=== PATIENT | female | born 1985 | race Caucasian/White ===

== ENCOUNTER 2017-01-09 11:33 | Day surgery (SDC) | payer OTHER ==
--- NOTE | 2017-01-05 21:00 | HP ---
PREOPERATIVE HISTORY AND PHYSICAL: DATE OF ADMISSION/SURGERY: 01/09/17 - [facility] DATE OF OFFICE VISIT: 01/05/17 ATTENDING SURGEON: Dr. Melissa Alberts. PROCEDURE: Right shoulder arthroscopic decompression and debridement. CHIEF COMPLAINT: Right shoulder pain. HISTORY OF PRESENT ILLNESS: Ms. Teran is a 31-year-old female who presents to the clinic for ongoing right shoulder pain. She has a history of an anterior capsular shift and labral repair of her shoulder instability; however, she continued to have shoulder pain due to impingement. She has failed conservative measures and therefore has agreed to undergo a right shoulder arthroscopic decompression and debridement with Dr. Alberts on 01/09/17. PAST MEDICAL HISTORY: Crohn's disease, anxiety, depression, and GERD. PAST SURGICAL HISTORY: Left breast lumpectomy that was benign, colon resection at the terminal ileum for Crohn's disease, and right shoulder anterior capsular shift and right shoulder labral repair. She was also hospitalized in 2000 and 2001 for fracture and DVT due to trauma. She has not had a DVT since. She denies pulmonary embolism. MEDICATIONS: 1. Maxalt 10 mg. 2. Calcium 1000 units plus D 800 mg 1 by mouth every day. 3. Humira 40 mg per 0.8 mL every week. 4. Multivitamins 1 by mouth daily. 5. Probiotics 1 by mouth daily. 6. Depakote 500 mg 1 by mouth daily. 7. Imitrex 100 mg every 2 hours as needed. 8. Benadryl 25 mg 1 by mouth every 6 hours as needed. 9. Xanax 1 mg by mouth three times a day as needed. 10. Oxycodone HCl 100 mg per 5 mL, 0.5 to 1 mL p.o. every 4 to 6 hours as needed for pain. 11. Propranolol HCl 60 mg take 1 by mouth daily. 12. Promethazine 25 mg 1 by mouth 3 times a day as needed. 13. Sumatriptan 100 mg as directed for migraines. 14. Vitamin K 200 mcg 2 by mouth every day. 15. Calcium as directed. 16. Cinnamon as directed. 17. Vitamin B12 complex as directed. 18. Stool softener 100 mg 1 by mouth twice a day. ALLERGIES: MORPHINE, CIPRO, ZITHROMAX, and ASACOL. FAMILY HISTORY: Positive for cancer. Mom has a history of GERD. Negative for DVT or PE. SOCIAL HISTORY: She lives with her . She denies smoking. She drinks alcoholic beverages rarely. She is left hand dominant. REVIEW OF SYSTEMS: A 14-point review of systems was reviewed with the patient. Positive for headaches and migraines. Positive for nausea, vomiting, diarrhea, and constipation due to Crohn's disease. Positive for GERD. Positive for history of UTIs. Positive for anemia. Positive for DVT after fracture and trauma. Denies pulmonary embolism or bleeding disorder. Review of systems is otherwise negative. PHYSICAL EXAMINATION GENERAL: A well-developed, well-nourished, 31-year-old female, in no acute distress. VITAL SIGNS: Height 69 inches, weight 118, pulse 72, blood pressure 104/86, respiratory rate 16, BMI 17.4. HEENT: Normocephalic, atraumatic. Throat clear. NECK: Supple. PULMONARY: Lungs are clear to auscultation bilaterally. No wheezing, rhonchi, or rales. CARDIOVASCULAR: Regular rate and rhythm. S1 and S2. No murmurs, gallops, or rubs. No edema. ABDOMEN: Positive bowel sounds, soft, nontender. NEURO: Alert and oriented x3. Cranial nerves are grossly intact. Sensation is intact to light touch. MUSCULOSKELETAL: shoulder, skin is intact. No erythema or warmth. Forward flexion to 180, abduction to 180, external rotation to 80, internal rotation to T6. Good strength on rotator cuff testing. +2 radial pulse. Sensation is intact to light touch distally. DIAGNOSTIC STUDIES: MR arthrogram reveals scar tissue and some subluxation of the shoulder. No rotator cuff tear of biceps is located. IMPRESSION: Impingement syndrome, right shoulder. PLAN: The patient is scheduled to undergo a right shoulder arthroscopic decompression and debridement with Dr. Alberts on 01/09/17. She will return to the office 10 to 14 days for postoperative followup and suture removal. Percocet will be used postoperatively for pain management. JEYSON WELSH [id number]/[facility] #: [id number] MTDD
[~2017-01-09 11:33] MED LIST: Buffered Lidocaine 1% SYR 3ML* 3 ML/SYR SYRINGE INTRADERM ONE; Famotidine IV* 10 MG/ML 2 ML (20 mg) IV ONE
[2017-01-09] MEDS ORDERED: Famotidine IV* 10 MG/ML 2 ML (20 mg) ONE ×2 (12:43→13:10)
[2017-01-09] MEDS ORDERED: ceFAZolin 2 GM PREMIX (*) 2 GM/50 ML BAG IVPB ONE (12:46)
[2017-01-09] MEDS ORDERED: Midazolam* 1 MG/ML 5 ML VIAL (5 MG) ONE (12:58)
[2017-01-09] MEDS ORDERED: fentaNYL* 50 MCG/ML 2 ML VIAL (100 MCG VIAL) ONE (12:58)
[2017-01-09] MEDS ORDERED: Ketorolac INJ* 30 MG/ML 1 ML VIAL ONE (12:59)
[2017-01-09] MEDS ORDERED: Lidocaine 2% PF * 5 ML VIAL ONE (12:59)
[2017-01-09] MEDS ORDERED: Ondansetron INJ* 2 MG/ML VIAL ONE (12:59)
[2017-01-09] MEDS ORDERED: Dexamethasone IV* 4 MG/ML 1 ML (4 MG) ONE (12:59)
[2017-01-09] MEDS ORDERED: Propofol* 10 MG/ML 20 ML BTL IV PUSH ONE (12:59)
[2017-01-09] MEDS ORDERED: ROPIVACAINE 5 MG/ML 30 ML BTL (0.5%) ONE (14:26)
[2017-01-09] MEDS ORDERED: Lidocaine 1% MPF* 2 ML VIAL ONE (14:27)
[2017-01-09] MEDS ORDERED: DiMENhydriNATE IV* 50 MG/ML VIAL ONE (15:06)
[2017-01-09] MEDS ORDERED: DiMENhydriNATE IV* 50 MG/ML VIAL IV PUSH PRN (15:28)
[2017-01-09] MEDS ORDERED: HYDROmorphone INJ* 1 MG/ML CARPUJECT SYRINGE IV PRN (15:28)
[2017-01-09] MEDS ORDERED: oxyCODONE/Acetamin 5/325 MG* TAB PO PRN (15:28)
[2017-01-09 16:32] VITALS: BP 125/90
[2017-01-09] MEDS ORDERED: Bupivacaine 0.25% SDV* 30 ML ONE (16:51)
--- NOTE | 2017-01-10 07:41 | OP ---
DATE OF OPERATION: 01/09/17 - [facility] DATE OF : 85 SURGEON: Melissa Alberts MD ANESTHESIOLOGIST: Zoraida Mejia MD ANESTHESIA: General PRE-OP DIAGNOSES: Right shoulder impingement and bicipital tendonitis, status post capsular labral repair, possible instability. POST-OP DIAGNOSES: Bicipital tendonitis, no full thickness rotator cuff tear, subacromial impingement. No failure of the capsular labral repair. OPERATIVE PROCEDURE: Right shoulder arthroscopic decompression and debridement. INDICATIONS: Salina Teran is a pleasant 32-year-old female who presents with right shoulder pain. In January 2016, she underwent capsular labral reconstruction after work-related injury. She did well and obtained her range of motion, but she started developing anteriorly based pain as well as impingement. She has had two injections, which helped relieve a lot of her pain. After extensive discussion including the risks and benefits of surgery versus nonoperative treatment and no guarantee as to how she would do, she elected to proceed with surgery. Plan was for a right shoulder arthroscopy with subacromial decompression and biceps tenotomy. The risks and benefits were discussed at length including but not limited to bleeding, infection, damage to nerves, vessels, surrounding structures, wound nonhealing, persistent pain, need for further surgery, risks of anesthesia, failure of the repair and risk of DVT. She has a previous history of a DVT, but due to this being an upper extremity surgery and that she will not be immobilized, I think the risk is low. After obtaining worker's comp clearance, she has elected to proceed with surgery. DESCRIPTION OF PROCEDURE: The patient was greeted in the preoperative area by the attending surgeon. The correct extremity was marked and consent was confirmed. The patient underwent interscalene nerve block by the anesthesiologist, which she tolerated without difficulty. The patient was then brought back to the operating suite where she was placed in supine position on the operating table. She then underwent general anesthesia with LMA intubation , which she tolerated without difficulty. The patient was then placed in the left lateral decubitus position with a small axillary roll. She was supported with a peg board. All bony prominences were padded. Her right arm was draped unsterile from the traction frame with 10 pounds of traction. The right shoulder was prepped and draped in the usual sterile fashion beginning with a chlorhexidine, soap, scrub, and alcohol wipe and a final prep with ChloraPrep. After appropriate surgical pause indicating site, side, procedure, and administration of antibiotics, the posterolateral portal was made sharply with an 11 blade. The scope was introduced through the joint. The joint was then examined. The previous capsular labral repair was still intact. The sutures were visible. There was no evidence of instability. The shoulder was not sitting anteriorly displaced. The biceps was identified and was very hyperemic and the superior labrum was still attached but had some mild fraying. The undersurface of the subscap had mild degeneration but no tearing. The undersurface of the supraspinatus had minimal fraying. The anterior portal was made in an outside-in fashion. The shaver was brought in to debris the unstable flaps and labrum anteriorly and posteriorly. Although the labrum was intact, there was mild unstable fraying. The glenoid had grade 1 changes. The humeral head had areas of grade 2 changes above the grade 1 changes. The biceps was then tenotomized using the biter. The stump was debrided back using the shaver. Once the debridement was completed, attention was directed to the subacromial space. The scope was repositioned into subacromial space. The lateral portal was made in an outside-in fashion. The shaver was used to debride the abundant bursa that was present. Once this was done, it exposed the rotator cuff, which was found to be intact. The undersurface of the acromion was identified and skeletonized using an electrocautery device. Once this was done, it revealed a small anterolateral spur, which was then debrided back using the bur. Once the acromioplasty was complete, all loose debris and fluid was removed from the joint. An 18-gauge needle was placed in subacromial space under arthroscopic visualization. All fluid and debris was removed from the joints. Ports were closed with 3-0 nylon and the subacromial space was injected with 5 cc of Marcaine and 80 mg of Depo-Medrol. Sterile dressings were applied. She was placed in a Cryo/Cuff and a regular sling. She was awoken from anesthesia and transferred to PACU in stable condition. POSTOPERATIVE PLAN: She will be nonweightbearing. She will have to work on range of motion as tolerated. She will be in the sling for 3 to 5 days as needed. She will be discharged on pain medication as well as antibiotics. DVT prophylaxis considered, but deferred as her previous history was due to trauma and this is an upper extremity injury. She will follow up in 10 to 14 days. [id number]/[facility] #: [id number] SRIDHAR
== END 2017-01-09 16:46 | disposition home or self-care (01) ==
LOC: OREAST 11:33
PROVIDERS: ATTEND Orthopaedic Surgery
DX: M75.21 Bicipital tendinitis, right shoulder (principal); M75.41 Impingement syndrome of right shoulder; Z88.5 Allergy status to narcotic agent; Z87.891 Personal history of nicotine dependence; K21.9 Gastro-esophageal reflux disease without esophagitis; F41.9 Anxiety disorder, unspecified; F32.9 Major depressive disorder, single episode, unspecified; K50.90 Crohn's disease, unspecified, without complications; Z88.1 Allergy status to other antibiotic agents
CPT/HCPCS: 88304; J0690; J1100; J1240; J1885; J2250; J2405; J2704; J2795; J3010

== ENCOUNTER 2017-02-07 09:34 | Emergency (ER) | payer OTHER ==
[2017-02-07 10:00] VITALS: BP 112/83
--- NOTE | 2017-02-07 10:40 | UC ---
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 - History of Current Complaint Chief Complaint: UCEye Stated Complaint: EYE ISSUE Time Seen by Provider: 02/07/17 10:34 Hx Obtained From: Patient Hx Last Menstrual Period: 01/24/17 Location of Injury: Conjunctiva Aggravating Factor(s): Contact Lens, Blinking Alleviating Factor(s): Nothing Associated Signs And Symptoms: Positive: Drainage (Purulent), Vision Impairment Left - Allergies/Home Medications Allergies/Adverse Reactions: Allergies Allergy/AdvReac Type Severity Reaction Status Date / Time Morphine Allergy Mild Rash Verified 02/07/17 09:48 Azithromycin Allergy Unknown Rash Verified 02/07/17 09:48 Ciprofloxacin [From Cipro] Allergy Rash Verified 02/07/17 09:48 Mesalamine [From Asacol] Allergy FLARES UP Verified 02/07/17 09:48 CROHN'S ENVIRONMENTAL/SEASONAL Allergy SNEEZE, Uncoded 02/07/17 09:48 HAYFEVER ITCHY WATERY EYES Home Medications: Home Medications Tetrahydrozoline HCl (Ophth) [Visine] 1 drop OPHTHALMIC SEE INSTRUCTIONS PRN 09/15 [History Confirmed 02/07/17] PMH/Surg Hx/FS Hx/Imm Hx Previously Healthy: Yes Endocrine History Of: Denies: Diabetes, Thyroid Disease, Hyperthyroidism, Hypothyroidism, Dyslipidemia Cardiovascular History Of: Denies: Cardiac Disorders, Hypertension, Pacemaker/ICD, Myocardial Infarction , Congestive Heart Failure, Atrial Fibrillation, Deep Vein Thrombosis, Bleeding Disorders Respiratory History Of: Denies: COPD, Asthma GI/ History Of: Reports: Gastroesophageal Reflux - CROHNS DISEASE, Ulcer - chron's disease, Gastrointestinal Bleed Denies: Gall Bladder Disease, Kidney Stones, Diverticulitis, Renal Disease, Urosepsis Neurological History Of: Reports: Migraine - ONCE A WEEK OR TWO, CONTROL WITH MEDS Denies: CVA, Seizures Psychological History Of: Reports: Anxiety - on meds, Depression - on meds Cancer History Of: Denies: Lung Cancer, Colorectal Cancer, Breast Cancer, Prostate Cancer, Cervical Cancer Other History Of: Negative For: HIV, Hepatitis B, Hepatitis C, Anticoagulant Therapy - Surgical History Surgical History: Yes Surgery Procedure, Year, and Place: 2002 left breast lumpectomy-BENIGN. 2004 right shoulder anterior capsular shift. 01/2016 ANOTHER SURGERY FOR DISLOCATED SHOULDER. 2012 RESECTION OF COLON AND INTESTINE. 2016 Right shoulder surgery - Family History Known Family History: Positive: None - neg for HTN or CAD Negative: Cardiac Disease, Hypertension, Diabetes - Social History Occupation: Employed Full-time Lives: With Family Alcohol Use: Rare Alcohol Amount: 1 per year Substance Use Type: None Smoking Status (MU): Former Smoker Type: Cigarettes Amount Used/How Often: 1 PPD FOR APPROX 7 YEARS Have You Smoked in the Last Year: No When Did the Patient Quit Smoking/Using Tobacco: 2013 - Immunization History Most Recent Influenza Vaccination: 2014 Review of Systems Constitutional: Negative Skin: Negative Eyes: Drainage, Eye Redness ENT: Negative Respiratory: Negative Cardiovascular: Negative Gastrointestinal: Negative Genitourinary: Negative Motor: Negative Neurovascular: Negative Musculoskeletal: Negative Neurological: Negative Psychological: Negative All Other Systems Reviewed And Are Negative: Yes Physical Exam Triage Information Reviewed: Yes Appearance: Well-Appearing, No Pain Distress, Well-Nourished Vital Signs: Initial Vital Signs Temp 98.1 F 02/07/17 09:51 Pulse 78 02/07/17 09:51 Resp 16 02/07/17 09:51 BP 112/83 02/07/17 09:51 Pulse Ox 98 02/07/17 09:51 Vital Signs Reviewed: Yes Eyes: Positive: Conjunctiva Inflamed - left, Discharge - left, Other: - Left Eye under flourscinene - no abrasions or abnormalities noted ENT: Positive: Pharynx normal, Nasal congestion, TMs normal Neck: Positive: No Lymphadenopathy Respiratory: Positive: Lungs clear, Normal breath sounds, No respiratory distress, No accessory muscle use Cardiovascular: Positive: RRR, No Murmur, Pulses Normal Abdomen Description: Positive: Nontender, Soft Bowel Sounds: Positive: Present Musculoskeletal Exam: Normal Neurological: Positive: Alert Psychological Exam: Normal Skin Exam: Normal Eye Complaint Course/Dx - Course Course Of Treatment: exam completed. no abnormalities noted under flouriscine. will send to Dr Borjas for followup d/t vision changes, eye pain and immunosuppressive humira therapy - Differential Dx/Diagnosis Differential Diagnosis/HQI/PQRI: Conjunctivitis, Corneal Abrasion Provider Diagnoses: conjunctivitis Discharge - Discharge Plan Condition: Stable Disposition: HOME Patient Education Materials: Conjunctivitis (ED) Forms: *Work Release Referrals: Odilia Sanford MD [Primary Care Provider] - Rl Borjas MD [Medical Doctor] - Additional Instructions: Start using eyedrops as directed Call Dr Borjas for followup evluation CONJUNCTIVITIS What is Conjunctivitis? Conjunctivitis is redness and swelling of the conjunctiva, the thin transparent layer that lines the inner eyelid and covers the white part of the eye. The three main types of conjunctivitis are infectious, allergic, and chemical. The infectious type, commonly called "pink eye," is caused by a contagious virus or by bacteria. Your body's allergies to pollen, cosmetics, animals or fabrics often bring on allergic conjunctivitis. Irritants like air pollution, noxious fumes and chlorine in swimming pools may produce the chemical form. Symptoms Might Include: More tearing Eye pain Redness in the eyes Gritty feeling in the eyes Itching of the eye Blurred vision Sensitivity to light Crusts that form on the eyelid overnight Treatment Recommendations: Use eye drops or ointment as directed. Do not rub or touch your eyes. Wash your hands frequently. Use cool compresses to relieve pain and itching. Prevention: Do not share eye make-up. Replace eye make-up frequently. Do not share towels, washcloths, etc. Do not share eye drops. Disinfect and handle contact lenses properly. Call Your Doctor or Return Here IF: Your symptoms worsen or do not improve in 3 to 4 days. You have problems with, or loss of, your vision. You have a significant increase in pain. You have any new symptoms that worry you.
[2017-02-07] MEDS ORDERED: Fluorescein Sodium TOPICAL* 1 MG TEST ONE (10:46)
[2017-02-07] MEDS ORDERED: Tetracaine 0.5% OPTH.SOL 15ML* BTL ONE (10:48)
== END 2017-02-07 11:10 | disposition home or self-care (01) ==
LOC: UCEAST 09:34
DX: H10.32 Unspecified acute conjunctivitis, left eye (principal); K50.90 Crohn's disease, unspecified, without complications; K21.9 Gastro-esophageal reflux disease without esophagitis; G43.909 Migraine, unspecified, not intractable, without status migrainosus; F41.8 Other specified anxiety disorders; Z88.1 Allergy status to other antibiotic agents; Z88.5 Allergy status to narcotic agent; Z87.891 Personal history of nicotine dependence
CPT/HCPCS: 99212; A9270-GY; G0463

== ENCOUNTER 2018-01-08 13:38 | Emergency (ER) | payer OTHER ==
[2018-01-08 13:51] VITALS: BP 109/72
--- NOTE | 2018-01-08 14:26 | UC ---
Abdominal Pain Female HPI - HPI Summary HPI Summary: Pt presents with lower abdominal pain. She tells me that she is 11 weeks and this is her first . Her lower abdominal pain woke her up at 0100 this morning and lasted for about 1 hour before subsiding. She went back to sleep - when she woke up she had the pain again that has persisted at varying levels of pain since that time. She also has a hx of crohn's - says that she gets lower abdominal pain/cramping anyway, but this feels different than her usual. Says that she has been constipated for weeks, but finally had a large BM yesterday. Denies fever, chills, chest pain, SOB, n/v/d, recent illness , vaginal bleeding/discharge, or dysuria. - History of Current Complaint Chief Complaint: UCAbdominalPain Stated Complaint: ABD PAIN 11 WEEKS PREG Time Seen by Provider: 01/08/18 14:24 Hx Obtained From: Patient Hx Last Menstrual Period: 10/21/18 Onset/Duration: Sudden Onset Severity Initially: Moderate Severity Currently: Moderate Pain Intensity: 5 Pain Scale Used: 0-10 Numeric Allergies/Adverse Reactions: Allergies Allergy/AdvReac Type Severity Reaction Status Date / Time azithromycin Allergy Rash Verified 01/08/18 14:00 ciprofloxacin Allergy Rash Verified 01/08/18 13:59 mesalamine Allergy See Comment Verified 01/08/18 13:59 morphine Allergy Rash Verified 01/08/18 13:59 ENVIRONMENTAL/SEASONAL Allergy SNEEZE, Uncoded 02/07/17 09:48 HAYFEVER ITCHY WATERY EYES Home Medications: Home Medications Pnv No.95/Ferrous Fum/Folic AC [ Multivitamin Tablet] 1 each PO DAILY [History Confirmed 01/08/18] diphenhydrAMINE HCl [Benadryl Allergy 25 MG CAP] 25 mg PO Q6H PRN 01/08/18 [ History Confirmed 01/08/18] PMH/Surg Hx/FS Hx/Imm Hx Other History Of: Negative For: HIV, Hepatitis B, Hepatitis C, Anticoagulant Therapy - Surgical History Surgical History: Yes Surgery Procedure, Year, and Place: 2002 left breast lumpectomy-BENIGN. 2004 right shoulder anterior capsular shift. 01/2016 ANOTHER SURGERY FOR DISLOCATED SHOULDER. 2012 RESECTION OF COLON AND INTESTINE. 2017 Right shoulder surgery - Family History Known Family History: Positive: None - neg for HTN or CAD Negative: Cardiac Disease, Hypertension, Diabetes - Social History Lives: With Family Alcohol Use: None Alcohol Amount: 1 per year Substance Use Type: None Smoking Status (MU): Former Smoker Type: Cigarettes Amount Used/How Often: 1 PPD FOR APPROX 7 YEARS Have You Smoked in the Last Year: No When Did the Patient Quit Smoking/Using Tobacco: 2013 - Immunization History Most Recent Influenza Vaccination: 2014 Review of Systems Constitutional: Negative Skin: Negative Respiratory: Negative Cardiovascular: Negative Gastrointestinal: Abdominal Pain Genitourinary: Negative Motor: Negative Neurovascular: Negative Musculoskeletal: Negative Neurological: Negative Psychological: Negative All Other Systems Reviewed And Are Negative: Yes Physical Exam - Summary Physical Exam Summary: GENERAL: NAD. WDWN. No pain distress. SKIN: No rashes, sores, ulcers, masses, lesions. NECK: Supple. Nontender. No lymphadenopathy. CHEST: CTAB. No r/r/w. No accessory muscle use. Breathing comfortably and in no distress. CV: RRR. Without m/r/g. Pulses intact. Brisk cap refill. ABDOMEN: RLQ tenderness. Epigastric tenderness. Soft. No distention or guarding. No organomegaly. No CVA tenderness. Bowel sounds present x4. NEURO: Alert. CN II-XII grossly intact. PSYCH: Age appropriate behavior. Triage Information Reviewed: Yes Vital Signs: Initial Vital Signs Temp 98.2 F 01/08/18 13:40 Pulse 88 01/08/18 13:40 Resp 16 01/08/18 13:40 BP 109/72 01/08/18 13:40 Pulse Ox 99 01/08/18 13:40 Abd Pain Female Course/Dx - Course Course Of Treatment: Lower abdominal pain. . I advised the patient to seek further evaluation in the ED regarding her lower abdominal pain and . She was agreeable to this plan and her friend will drive her by private vehicle. - Differential Dx/Diagnosis Provider Diagnoses: Lower abdominal pain. Discharge - Discharge Plan Condition: Stable Disposition: OTHER Discharge Disposition Comment: To [facility] by private car Referrals: Odilia Sanford MD [Primary Care Provider] - Additional Instructions: Please go directly to [facility] ED for evaluation of your abdominal pain in .
== END 2018-01-08 14:34 ==
LOC: UCEAST 13:38
DX: O26.891 Other specified pregnancy related conditions, first trimester (principal); R10.30 Lower abdominal pain, unspecified; Z3A.11 11 weeks gestation of pregnancy; Z88.1 Allergy status to other antibiotic agents; Z88.5 Allergy status to narcotic agent; Z87.891 Personal history of nicotine dependence
CPT/HCPCS: 99212; G0463

== ENCOUNTER 2018-01-08 14:52 | Emergency (ER) | payer OTHER ==
--- NOTE | 2018-01-08 16:23 | RAD ---
HISTORY: Pelvic cramping in a woman who is 11 weeks according to last menstrual period. COMPARISONS: None from this . TECHNIQUE: Multiple transverse and longitudinal ultrasound images were obtained of the pelvis using grayscale, color flow, spectral and M-mode sonographic imaging. FINDINGS: UTERUS: The uterus is normal in shape, size, contour, and echotexture. GESTATION: There is a single live intrauterine gestation. The crown-rump length measures 3.9 cm yielding a gestational age of 10 weeks and 6 days. cardiac motion is detected at a rate of 165 beats per minute. CUL-DE-SAC: There is no free fluid within the cul-de-sac. RIGHT OVARY: The right ovary measures 4.2 x 3.0 x 2.5 cm. Within the right ovary there is an anechoic and avascular structure measuring 2.8 cm in greatest dimension most consistent with a corpus luteum. LEFT OVARY: Not discretely visualized IMPRESSION: Single live intrauterine gestation with a crown-rump length yielding a gestational age of 10 weeks and 6 days.
[2018-01-08 16:47] LABS: ABS Basophils 0 10^3/ul (0-0.2); ABS Eosinophils 0 10^3/ul (0-0.6); ABS Lymphocytes 3.1 10^3/ul (1.0-4.8); ABS Monocytes 0.7 10^3/ul (0-0.8); ABS Neutrophils 5.4 10^3/ul (1.5-7.7); ABS Nucleated RBC 0 10^3/ul; Eosinophil % 0.3 % (0-6); Hematocrit 35 % (35-47); Hemoglobin 11.8 g/dl (12.0-16.0); Lymphocyte % 33.4 % (25-47); Mean Corpuscular HGB Conc 34 g/dl (31-36); Mean Corpuscular Hemoglobin 31 pg (27-31); Mean Corpuscular Volume 91 fL (80-97); Mean Platelet Volume 7 um3 (7.4-10.4); Nucleated Red Blood Cells % 0; Platelet Count 238 10^3/ul (150-450); Red Blood Count 3.81 10^6/ul (4.0-5.4); Red Cell Distribution Width 14 % (10.5-15); White Blood Count 9.2 10^3/ul (3.5-10.8)
[2018-01-08 17:09] LABS: Urine Appearance Cloudy; Urine Blood Negative (Negative); Urine Color Yellow; Urine Ketones Negative (Negative); Urine Protein Negative (Negative); Urine Urobilinogen Negative (Negative)
[2018-01-08 17:13] LABS: EGFR Non-African American 169.1 (>60)
[2018-01-08 18:48] VITALS: BP 94/50
--- NOTE | 2018-01-08 21:27 | ED ---
Genny Bernal Edward, scribed for Hernesto Clark MD on 01/08/18 at 1532 . Abdominal Pain/Female - HPI Summary HPI Summary: 33 y/o female presents to the ED c/o ABD pain starting at 01:00 this morning. Pt had two episodes of "whole stomach seizing", one at 01:00 and one between 06: 00-07:00 this morning, from the sternum to belly button. Intermittently today the pt c/o ABD pain in the lower ABD that moves from the R to the L. Associated sx: constipation the past several days but BM yesterday. The pain is not aggravated or alleviated by anything. PMHx Crohn's. LNMP Oct 21 2017. Insemination on Nov 07 2017. - History of Current Complaint Chief Complaint: EDAbdPain Stated Complaint: ABD PAIN-CC TRANSFER Time Seen by Provider: 01/08/18 15:26 Hx Obtained From: Patient Hx Last Menstrual Period: 10/21/18 Onset/Duration: Lasting Hours Timing: Intermittent Episode Lasting Pain Intensity: 4 Location: Other - lower ABD moves around Character: Cramping Aggravating Factor(s): Nothing Alleviating Factor(s): Nothing Associated Signs and Symptoms: Positive: Constipation Allergies/Adverse Reactions: Allergies Allergy/AdvReac Type Severity Reaction Status Date / Time azithromycin Allergy Rash Verified 01/08/18 14:00 ciprofloxacin Allergy Rash Verified 01/08/18 13:59 mesalamine Allergy See Comment Verified 01/08/18 13:59 morphine Allergy Rash Verified 01/08/18 13:59 ENVIRONMENTAL/SEASONAL Allergy SNEEZE, Uncoded 01/08/18 17:14 HAYFEVER ITCHY WATERY EYES PMH/Surg Hx/FS Hx/Imm Hx Previously Healthy: No Endocrine/Hematology History: Reports: Hx Anemia - WITH MENSTRUAL CYCLE Denies: Hx Anticoagulant Therapy, Hx Diabetes, Hx Thyroid Disease Cardiovascular History: Denies: Hx Congestive Heart Failure, Hx Deep Vein Thrombosis, Hx Hypertension , Hx Myocardial Infarction, Hx Pacemaker/ICD, Other Cardiovascular Problems/ Disorders Respiratory History: Denies: Hx Asthma, Hx Chronic Obstructive Pulmonary Disease (COPD), Hx Lung Cancer, Other Respiratory Problems/Disorders GI History: Reports: Hx Crohn's Disease, Hx Gastrointestinal Bleed, Hx Irritable Bowel, Hx Ulcer - chron's disease Denies: Hx Gall Bladder Disease, Hx Urosepsis Comment Only: Other GI Disorders - CROHNS History: Reports: Hx Kidney Infection - USUALLY TWICE A YEAR Denies: Hx Dialysis, Hx Kidney Stones, Hx Renal Disease, Other Problems/ Disorders Musculoskeletal History: Reports: Hx Arthritis - all over, Other Musculoskeletal History - RECURRENT RIGHT SHOULDER DISLOCATION Sensory History: Reports: Hx Contacts or Glasses - contacts and glasses Denies: Hx Hearing Aid Opthamlomology History: Reports: Hx Contacts or Glasses - contacts and glasses Neurological History: Reports: Hx Headaches, Hx Migraine - ONCE A WEEK OR TWO, CONTROL WITH MEDS Denies: Hx Seizures Psychiatric History: Reports: Hx Anxiety - on meds, Hx Depression - on meds, Hx Post Traumatic Stress Disorder Denies: Hx Panic Disorder - Surgical History Surgery Procedure, Year, and Place: 2002 left breast lumpectomy-BENIGN. 2004 right shoulder anterior capsular shift. 01/2016 ANOTHER SURGERY FOR DISLOCATED SHOULDER. 2012 RESECTION OF COLON AND INTESTINE. 2016 Right shoulder surgery Hx Anesthesia Reactions: No Infectious Disease History: No Infectious Disease History: Reports: Hx Clostridium Difficile, Hx Shingles Denies: Hx Hepatitis, Hx Human Immunodeficiency Virus (HIV), Hx of Known/ Suspected MRSA, Hx Tuberculosis, Hx Known/Suspected VRE, Hx Known/Suspected VRSA , History Other Infectious Disease, Traveled Outside the [place] in Last 30 Days - Family History Known Family History: Negative: Cardiac Disease, Hypertension, Diabetes - Social History Alcohol Use: None Alcohol Amount: 1 per year Substance Use Type: Reports: None Smoking Status (MU): Former Smoker Type: Cigarettes Amount Used/How Often: 1 PPD FOR APPROX 7 YEARS Have You Smoked in the Last Year: No Review of Systems Constitutional: Negative Eyes: Negative ENT: Negative Cardiovascular: Negative Respiratory: Negative Positive: Abdominal Pain, Other - constipation Genitourinary: Negative Musculoskeletal: Negative Skin: Negative Neurological: Negative Psychological: Normal All Other Systems Reviewed And Are Negative: Yes Physical Exam - Summary Physical Exam Summary: Appearance: The patient is well-nourished in no acute distress and in no acute pain. Skin: The skin is warm and dry and skin color reflects adequate perfusion. HEENT: The head is normocephalic and atraumatic. The pupils are equal and reactive. The conjunctivae are clear and without drainage. Nares are patent and without drainage. Mouth reveals moist mucous membranes and the throat is without erythema and exudate. The external ears are intact. The ear canals are patent and without drainage. The tympanic membranes are intact. Neck: the neck is supple with full range of motion and non-tender. There are no carotid bruits. There is no neck vein distension. Respiratory: Chest is non-tender. Lungs are clear to auscultation and breath sounds are symmetrical and equal. Cardiovascular: Heart is regular rate and rhythm. There is no murmur or rub auscultated. There is no peripheral edema and pulses are symmetrical and equal. Abdomen: The abdomen is soft and tender in the RLQ and in the epigastrium. There are normal bowel sounds heard in all four quadrants and there is no organomegaly palpated. Musculoskeletal: There is no back tenderness noted. Extremities are non-tender with full range of motion. There is good capillary refill. There is no peripheral edema or calf tenderness elicited. Neurological: Patient is alert and oriented to person, place and time. The patient has symmetrical motor strength in all four extremities. Cranial nerves are grossly intact. Deep tendon reflexes are symmetrical and equal in all four extremities. Psychiatric: The patient has an appropriate affect and does not exhibit any anxiety or depression. Triage Information Reviewed: Yes Vital Signs On Initial Exam: Initial Vitals Temp Pulse Resp BP Pulse Ox 97.1 F 66 16 120/78 100 01/08/18 15:11 01/08/18 15:11 01/08/18 15:11 01/08/18 15:11 01/08/18 15:11 Vital Signs Reviewed: Yes Diagnostics - Vital Signs Vital Signs Temp Pulse Resp BP Pulse Ox 01/08/18 15:11 97.1 F 66 16 120/78 100 - Laboratory Lab Results: Lab Results 01/08/18 01/08/18 01/08/18 Range/Units 16:11 16:11 16:11 WBC 9.2 (3.5-10.8) 10^3/ul RBC 3.81 L (4.0-5.4) 10^6/ul Hgb 11.8 L (12.0-16.0) g/dl Hct 35 (35-47) % MCV 91 (80-97) fL MCH 31 (27-31) pg MCHC 34 (31-36) g/dl RDW 14 (10.5-15) % Plt Count 238 (150-450) 10^3/ul MPV 7 L (7.4-10.4) um3 Neut % (Auto) 58.4 (38-83) % Lymph % (Auto) 33.4 (25-47) % Garvin % (Auto) 7.4 H (0-7) % Eos % (Auto) 0.3 (0-6) % Baso % (Auto) 0.5 (0-2) % Absolute Neuts (auto) 5.4 (1.5-7.7) 10^3/ul Absolute Lymphs (auto) 3.1 (1.0-4.8) 10^3/ul Absolute Monos (auto) 0.7 (0-0.8) 10^3/ul Absolute Eos (auto) 0 (0-0.6) 10^3/ul Absolute Basos (auto) 0 (0-0.2) 10^3/ul Absolute Nucleated RBC 0 10^3/ul Nucleated RBC % 0 Sodium 135 (133-145) mmol/L Potassium 4.0 (3.5-5.0) mmol/L Chloride 104 (101-111) mmol/L Carbon Dioxide 26 (22-32) mmol/L Anion Gap 5 (2-11) mmol/L BUN 10 (6-24) mg/dL Creatinine 0.43 L (0.51-0.95) mg/dL Est GFR ( Amer) 217.5 (>60) Est GFR (Non-Af Amer) 169.1 (>60) BUN/Creatinine Ratio 23.3 H (8-20) Glucose 83 (70-100) mg/dL Lactic Acid 0.8 (0.5-2.0) mmol/L Calcium 9.5 (8.6-10.3) mg/dL Total Bilirubin 0.20 (0.2-1.0) mg/dL AST 14 (13-39) U/L ALT 17 (7-52) U/L Alkaline Phosphatase 37 (34-104) U/L C-Reactive Protein < 1.00 (< 5.00) mg/L Total Protein 6.6 (6.4-8.9) g/dL Albumin 3.9 (3.2-5.2) g/dL Globulin 2.7 (2-4) g/dL Albumin/Globulin Ratio 1.4 (1-3) Lipase 20 (11.0-82.0) U/L Beta HCG, Quant 236066.00 mIU/mL Urine Color Urine Appearance Urine pH (5-9) Ur Specific [place] (1.010-1.030) Urine Protein (Negative) Urine Ketones (Negative) Urine Blood (Negative) Urine Nitrate (Negative) Urine Bilirubin (Negative) Urine Urobilinogen (Negative) Ur Leukocyte Esterase (Negative) Urine Glucose (Negative) 01/08/18 Range/Units 16:46 WBC (3.5-10.8) 10^3/ul RBC (4.0-5.4) 10^6/ul Hgb (12.0-16.0) g/dl Hct (35-47) % MCV (80-97) fL MCH (27-31) pg MCHC (31-36) g/dl RDW (10.5-15) % Plt Count (150-450) 10^3/ul MPV (7.4-10.4) um3 Neut % (Auto) (38-83) % Lymph % (Auto) (25-47) % Garvin % (Auto) (0-7) % Eos % (Auto) (0-6) % Baso % (Auto) (0-2) % Absolute Neuts (auto) (1.5-7.7) 10^3/ul Absolute Lymphs (auto) (1.0-4.8) 10^3/ul Absolute Monos (auto) (0-0.8) 10^3/ul Absolute Eos (auto) (0-0.6) 10^3/ul Absolute Basos (auto) (0-0.2) 10^3/ul Absolute Nucleated RBC 10^3/ul Nucleated RBC % Sodium (133-145) mmol/L Potassium (3.5-5.0) mmol/L Chloride (101-111) mmol/L Carbon Dioxide (22-32) mmol/L Anion Gap (2-11) mmol/L BUN (6-24) mg/dL Creatinine (0.51-0.95) mg/dL Est GFR ( Amer) (>60) Est GFR (Non-Af Amer) (>60) BUN/Creatinine Ratio (8-20) Glucose (70-100) mg/dL Lactic Acid (0.5-2.0) mmol/L Calcium (8.6-10.3) mg/dL Total Bilirubin (0.2-1.0) mg/dL AST (13-39) U/L ALT (7-52) U/L Alkaline Phosphatase (34-104) U/L C-Reactive Protein (< 5.00) mg/L Total Protein (6.4-8.9) g/dL Albumin (3.2-5.2) g/dL Globulin (2-4) g/dL Albumin/Globulin Ratio (1-3) Lipase (11.0-82.0) U/L Beta HCG, Quant mIU/mL Urine Color Yellow Urine Appearance Cloudy Urine pH 7.0 (5-9) Ur Specific [place] 1.020 (1.010-1.030) Urine Protein Negative (Negative) Urine Ketones Negative (Negative) Urine Blood Negative (Negative) Urine Nitrate Negative (Negative) Urine Bilirubin Negative (Negative) Urine Urobilinogen Negative (Negative) Ur Leukocyte Esterase Negative (Negative) Urine Glucose Negative (Negative) Result Diagrams: 01/08/18 16:11 01/08/18 16:11 Lab Statement: Any lab studies that have been ordered have been reviewed, and results considered in the medical decision making process. - Ultrasound No standard instances Ultrasound Interpretation: Positive (See Comments) - US - Single live intrauterine gestation with a crown-rump length yielding a gestational age of 10 weeks and 6 days. Ultrasound Interpretation Completed By: Radiologist - ED PHYSICIAN REVIEWS AND AGREES Re-Evaluation - Re-Evaluation 1 Re-Evaluation Time: 18:16 Change: Improved Abdominal Pain Fem Course/Dx - Course Course Of Treatment: Ms. Teran presented with abdominal pain that has been intermittent. She was tender in the suprapubic area although she states that the pain has moved around. Her W/U including U/S was negative. She has a nearly 11 week IUP without any problems. - Diagnoses Provider Diagnoses: Abdominal pain Discharge - Discharge Plan Condition: Stable Disposition: HOME Patient Education Materials: Abdominal Pain (ED) Referrals: Odilia Sanford MD [Primary Care Provider] - 4 Days (PLEASE F/U IN 3-5 DAYS) Additional Instructions: RETURN FOR WORSENING OF SYMPTOMS The documentation as recorded by the Genny coulter Edward accurately reflects the service I personally performed and the decisions made by , Hernesto Clark MD.
== END 2018-01-08 18:46 | disposition home or self-care (01) ==
LOC: ED 14:52
DX: R10.9 Unspecified abdominal pain (principal); K59.00 Constipation, unspecified; Z87.891 Personal history of nicotine dependence
CPT/HCPCS: 36415; 76801; 80053; 81003; 83605; 83690; 84702; 85025; 86140; 99282

== ENCOUNTER 2018-06-21 07:28 | Emergency (ER) | payer OTHER ==
[2018-06-21 07:37] VITALS: BP 142/94
--- NOTE | 2018-06-21 07:52 | UC ---
Throat Pain/Nasal Tee HPI - HPI Summary HPI Summary: IN ROOM NOTE: A 33 y/o F who is 35-weeks presents to E with c/o worsening sore throat pain onset 3-4 days ago. Associated sx: chest congestion, productive cough. Denies fever, LE edema, SOB worse than baseline, vaginal discharge or bleeding. She is not allergic to penicillin. This is her first , she states it is going well. Denies problems with high BP in her . PMHx: Crohn's. FHx: CA. Pt is a school speech therapist. She is unable to see her PCP who is currently out of town. Her daily medications include Oxycodone for Crohn's; vitamins; monthly B12; Benadryl for allergies; monthly Crohn's medication. NOTE: Chief complaint is sore throat. A 33 y/o F near term with sore throat, afebrile , BP of 142/94, pulse ox 99, has 5/10 throat discomfort. Former smoker, no ETOH. Pts hx includes Crohns dz. Rapid strep ordered. NURSE'S NOTE: 3 days of sore throat deneis fever, slight chest congetion. c/o difficulty swallowing. 8.5 months (34.5 weeks). - History of Current Complaint Chief Complaint: UCGeneralIllness Stated Complaint: SORE THROAT Time Seen by Provider: 06/21/18 07:45 Hx Obtained From: Patient, Family/Mechanics Handyman - present Hx Last Menstrual Period: 10/21/18 Onset/Duration: Lasting Days, Still Present Severity: Moderate Pain Intensity: 5 Pain Scale Used: 0-10 Numeric Cough: Productive Associated Signs & Symptoms: Positive: Other - pos: chest congestion, cough. neg : SOB worse than baseline; pedal edema; vaginal discharge/bleeding. Negative: Fever Related History: Seasonal Allergies - Allergies/Home Medications Allergies/Adverse Reactions: Allergies Allergy/AdvReac Type Severity Reaction Status Date / Time ciprofloxacin Allergy Rash Verified 06/21/18 07:37 mesalamine Allergy See Comment Verified 06/21/18 07:37 morphine Allergy Rash Verified 06/21/18 07:37 ENVIRONMENTAL/SEASONAL Allergy SNEEZE, Uncoded 06/21/18 07:37 HAYFEVER ITCHY WATERY EYES PMH/Surg Hx/FS Hx/Imm Hx Previously Healthy: No - pos: Crohn's; arthritis GI/ History: Gastroesophageal Reflux Psychological History: Anxiety, Depression Other History Of: Negative For: HIV, Hepatitis B, Hepatitis C, Anticoagulant Therapy - Surgical History Surgical History: Yes Surgery Procedure, Year, and Place: 2002 left breast lumpectomy-BENIGN. 2004 right shoulder anterior capsular shift. 01/2016 ANOTHER SURGERY FOR DISLOCATED SHOULDER. 2012 RESECTION OF COLON AND INTESTINE. 2017 Right shoulder surgery - Family History Known Family History: Negative: Cardiac Disease, Hypertension, Diabetes Family History: pos: CA - Social History Occupation: Employed Full-time Lives: With Family Alcohol Use: None Alcohol Amount: 1 per year Substance Use Type: None Smoking Status (MU): Former Smoker Type: Cigarettes Amount Used/How Often: 1 PPD FOR APPROX 7 YEARS Have You Smoked in the Last Year: No When Did the Patient Quit Smoking/Using Tobacco: 2013 - Immunization History Most Recent Influenza Vaccination: 2014 Review of Systems Constitutional: Negative - fever ENT: Sore Throat Respiratory: Negative - SOB, Cough - productive Cardiovascular: Other - pos: chest congestion Genitourinary: Negative - vaginal discharge Musculoskeletal: Negative - pedal edema All Other Systems Reviewed And Are Negative: Yes - Comments Additional Review of Systems Comments: POSITIVE: SORE THROAT, CHEST CONGESTION, PRODUCTIVE COUGH NEGATIVE: FEVER, SOB WORSE THAN BASELINE, LE EDEMA, VAGINAL DISCHARGE/BLEEDING Physical Exam - Summary Physical Exam Summary: Appearance: The patient is well-appearing, is in no pain distress, and is well- nourished. Eyes: Conjunctiva are clear. ENT: The hearing is grossly normal, the pharynx is normal, and the TMs are normal. There is no muffled or hoarse voice. THROAT SHOWS NO EXUDATES NOR TONSILLAR SWELLING. Neck: The neck is supple and there is no lymphadenopathy. Respiratory: The chest is nontender. The LUNGS ARE CLEAR, there are normal breath sounds, and there is no respiratory distress. Cardiovascular: HEART IS REGULAR RATE AND RHYTHM. There is no murmur. Abdomen: The abdomen is SOFT AND NONTENDER TO PALPATION. There is no organomegaly. Bowel sounds: present Musculoskeletal: Strength is intact. The patient moves all extremities. Neurological: The patient is alert. Psychological: The patient displays age appropriate behavior Skin: Negative for rashes. Triage Information Reviewed: Yes Vital Signs: Initial Vital Signs Temp 97.9 F 06/21/18 07:32 Pulse 90 06/21/18 07:32 Resp 18 06/21/18 07:32 BP 142/94 06/21/18 07:32 Pulse Ox 99 06/21/18 07:32 Vital Signs Reviewed: Yes Re-Evaluation - Re-Evaluation 1 Re-Evaluation Time: 08:06 Change: Unchanged Comment: Discussing strep test results (negative) and plans for discharge. Discussed need to contact her OB-BELT FIXER regarding her elevated BP. Pt voiced understanding. Throat Pain/Nasal Course/Dx - Course Course Of Treatment: A 33 y/o F who is 35-week gestation, primigravida, presents with URI sx. Rapid strep is negative. I recommended symptomatic treatment including tea and honey, vaporizer, steam, hot showers. Medications have been included in the original chart and reviewed. Discussed with patient her BP, she is not on any current HTN treatment nor previously diagnosed. Her BP reading is 142/94; it is slightly above what I consider HTN in of 140/90. She will contact her OB-BELT FIXER for further evaluation as needed. - Differential Dx/Diagnosis Differential Diagnosis/HQI/PQRI: Other - strep vs. URI Provider Diagnoses: 1. Viral URI. 2. HTN in Discharge - Sign-Out/Discharge Documenting (check all that apply): Patient Departure - DC All imaging exams completed and their final reports reviewed: No Studies - Discharge Plan Condition: Stable Disposition: HOME Patient Education Materials: Pharyngitis (ED) Referrals: Odilia Sanford MD [Primary Care Provider] - Additional Instructions: WE DISCUSSED: You have a a viral upper respiratory infection. It was also noted that your blood pressure was high for . It was 142/ 94; higher than the 140/90 cut off. Use hot tea and honey, steam, warm showers to the front of your chest. Over the next 7-10 days this should resolve. IF YOU DEVELOP FEVER or new symptoms, call us or return for re-evaluation. Call your RECHARGER doctor today to discuss your blood pressure. I will be here in 2 days if you have any questions or concerns. You can come to see me again or call me. - Billing Disposition and Condition Condition: STABLE Disposition: Home - Attestation Statements Document Initiated by Scribe: Yes Documenting Scribe: [facility] For Whom Scribe is Documenting (Include Credential): Torsten Contreras MD Scribe Attestation: I, Jayden Lovelace, scribed for Torsten Contreras MD on 06/21/18 at 0810. Scribe Documentation Reviewed: Yes Provider Attestation: The documentation as recorded by the yaritzaibe, Jayden Lovelace accurately reflects the service I personally performed and the decisions made by me, Torsten Contreras MD
== END 2018-06-21 08:12 | disposition home or self-care (01) ==
LOC: UCEAST 07:28
DX: O98.513 Other viral diseases complicating pregnancy, third trimester (principal); O99.613 Diseases of the digestive system complicating pregnancy, third trimester; K50.90 Crohn's disease, unspecified, without complications; O16.3 Unspecified maternal hypertension, third trimester; J06.9 Acute upper respiratory infection, unspecified; Z3A.35 35 weeks gestation of pregnancy; Z88.0 Allergy status to penicillin; Z88.1 Allergy status to other antibiotic agents; Z88.5 Allergy status to narcotic agent; Z91.09 Other allergy status, other than to drugs and biological substances; Z88.8 Allergy status to other drugs, medicaments and biological substances
CPT/HCPCS: 87651; 99211; G0463

== ENCOUNTER 2018-07-20 08:09 | Inpatient (IN) | payer OTHER ==
[2018-07-20] MEDS ORDERED: Dinoprostone* 10 MG VAG.SUPP VAGINAL ONE (08:46)
[2018-07-20] MEDS ORDERED: diPHENhydraMINE PO* 25 MG PO PRN (09:45)
--- NOTE | 2018-07-20 10:03 | HP ---
General Information - General Information Maternal Age: 33 Grav: 1 Para: 0 SAB: 0 IEA: 0 Estimated Due Date: 07/28/18 Determined By: LMP Maternal Blood Type and Rh: O Positive - Results this Serology/RPR Result: Non-Reactive Rubella Result: Immune HBsAg Result: Negative HIV Result: Negative GBS Culture Result: Positive Past Medical History Delivery History: See Records Delivery History Comment: No previous pregnancies Pertinent Past Medical History: See Records Past Medical History Comment: Crohn's dz depression/anxiety in the past ulcers gallbladder stones hx starting in 2010 migraine DVT 2002 after leg injury benign breast lumps Pertinent Past Surgical History: See Records Past Surgical History Comment: Right shoulder, ant capsule repair 2004 Fecal transplant for C. diff 2012 colon resection 2013 right shoulder labrum repair 2016 right shoulder bicep tendon 2017 Pertinent Family History: Non-Contributory Family History Comment: Brain cancer skin cancer - Antepartal Records Antepartal Records: Reviewed, Complicated by: - Crohn's, daily oxycodone use, suspected IUGR Review of Systems Constitutional: Comfortable CV Complaint: No Respiratory: Shortness of Breath: No Gastrointestinal: No Nausea/Vomiting, Normal Bowel Movement Genitourinary: No Dysuria, No Bleeding, No Leaking Fluid Musculoskeletal: No Complaint, No Epigastric Pain Neurological: No Headache, No Visual Changes Movement: Normal Exam Allergies/Adverse Reactions: Allergies ciprofloxacin Allergy (Verified 07/20/18 08:44) Rash mesalamine Allergy (Verified 07/20/18 08:44) See Comment flares up Chron's ENVIRONMENTAL/SEASONAL HAYFEVER Allergy (Uncoded 07/20/18 08:44) SNEEZE, ITCHY WATERY EYES BP 109/85 T 98.2 HR 88 O2 96% RR 16 - Measurements Height: 5 ft 9 in Weight: 167 lb Weight in lbs: [id number] Body Mass Index (BMI): 24.6 Pre- Weight: 124 lb Weight Gained This : 43 lbs and 0 ozs - Exam Breast: Breast Exam Deferred CVA: No CVA Tenderness Extremities: No Edema Heart: Normal Rhythm/Heart Sounds HEENT: No Significant Findings Lungs: Clear Bilaterally Rectal: Rectal Exam Deferred Reflexes: DTR 2+, - - no clonus Thyroid: - - Assessed WNL @ entry to care - Abdominal Exam Abdomen Exam: Non-Tender - Ultrasound/Biophysical Profile Ultrasound Status: Not Done Targeted Exam Findings See L&D Outpatient Visit Provider Note for Findings: N/A Estimated Weight: 6lb Cervical Exam: Fingertip Effacement: 50% Station: -2 Presenting Part: Vertex Membrane Status: Intact Bleeding/Discharge: None EFM Findings - External Monitor Findings Baseline Heart Rate: 130 External Monitor Findings: Accelerations Present, No Pattern of Variable or Late Decelerations, Variability Moderate Contractions: None Assessment/Plan - Assessment 33 yo with IUP @ 38+6 weeks gestation here for cervical ripening and induction of labor for suspected IUGR and proteinuria. IBOW. No evidence metabolic acidemia. - Obstetrical Risk Factors Obstetrical Risk Factors: GBS Positive, Proteinuria, IUGR - Plan Plan: Induction, Cervical Ripening Plan Comment: Admit to L&D. PARQ discussion of cervidil for cervical ripening and patients agree. Monitor per protocol. Pain medicine as desired. Anticipate SVB - Date/Time of Admission Date of Admission: 07/20/18 Time of Admission: 09:32
--- NOTE | 2018-07-20 15:04 | PN ---
Progress Note - Progress Note Date of Service: 07/20/18 Note: S: Patient concerned cervidil might be coming out, feels something at introitus. No other concerns. No contractions or pain. O: On exam, string bunched up but cervidil in place Vss, afebrile FHT Cat 1 A: WNL cervidil placement P: String replaced without concern. Continue monitoring per protocol.
--- NOTE | 2018-07-20 19:01 | PN ---
Progress Note - Progress Note Date of Service: 07/20/18 Note: S: Patient reports feeling more vaginal pressure and some menstrual-like cramping. Has noticed mild vaginal discomfort. O: VSS, afebrile UCs Q 1-2 min, lasting 30+ seconds FHT 135, +accels, no decels, mod barb VE deferred A: Uterine hypertonicity vs irritability No evidence metabolic acidemia P: Pull cervidil and continue to monitor. Discussed continuing prostaglandin ripening overnight if UCs space out. PARQ discussion misoprostal vs repeat cervidil. Patient will likely prefer miso for oral dosing because of slight vaginal irritation.
[2018-07-20] MEDS: oxyCODONE ORAL.SOLN* 5 MG/5 ML UDC PO PRN (19:38)
[2018-07-20] MEDS ORDERED: Nalbuphine* 10 MG/ML 1 ML VIAL IM PRN (20:32)
[2018-07-20] MEDS ORDERED: Promethazine INJ(RESTRICTED)* 25 MG/ML 1 ML VIAL IM PRN (20:32)
[2018-07-21] MEDS: oxyCODONE ORAL.SOLN* 5 MG/5 ML UDC PO PRN ×2 (08:20→20:40)
[2018-07-21 09:24] LABS: ABS Basophils 0.1 10^3/ul (0-0.2); ABS Eosinophils 0 10^3/ul (0-0.6); ABS Lymphocytes 2.2 10^3/ul (1.0-4.8); ABS Monocytes 0.6 10^3/ul (0-0.8); ABS Neutrophils 5.5 10^3/ul (1.5-7.7); ABS Nucleated RBC 0 10^3/ul; Eosinophil % 0.2 % (0-6); Hematocrit 29 % (35-47); Hemoglobin 9.5 g/dl (12.0-16.0); Lymphocyte % 26.2 % (25-47); Mean Corpuscular HGB Conc 33 g/dl (31-36); Mean Corpuscular Hemoglobin 29 pg (27-31); Mean Corpuscular Volume 87 fL (80-97); Mean Platelet Volume 8.1 um3 (7.4-10.4); Nucleated Red Blood Cells % 0.1; Platelet Count 220 10^3/ul (150-450); Red Blood Count 3.29 10^6/ul (4.00-5.40); Red Cell Distribution Width 14 % (10.5-15); White Blood Count 8.4 10^3/ul (3.5-10.8)
[2018-07-21 09:40] LABS: Uric Acid 6.1 mg/dL (2.3-6.6)
[2018-07-21 09:40] LABS: Urine Appearance Cloudy; Urine Blood Negative (Negative); Urine Color Yellow; Urine Ketones Negative (Negative); Urine Protein 2+(100 mg/dL) (Negative); Urine Red Blood Cell Trace(0-2/hpf) (Absent); Urine Specific Gravity 1.017 (1.010-1.030); Urine Urobilinogen Negative (Negative); Urine White Blood Cell 1+(6-10/hpf) (Absent)
[2018-07-21 09:41] LABS: INR 0.84 (0.77-1.02)
[2018-07-21 09:44] LABS: Platelet Count 220 10^3/ul (150-450)
[2018-07-21 10:00] LABS: Schistocytes ABSENT
[2018-07-21] MEDS ORDERED: Misoprostol TAB* 100 MCG PO ONE ×3 (10:06→18:45)
--- NOTE | 2018-07-21 10:24 | PN ---
Progress Note - Progress Note Date of Service: 07/21/18 Note: S: Assuming care of Salina Teran at 33 yo here for induction of labor for IUGR and proteinuria. Pt denies CASIANO. No visual changes. No RUQ pain. notable for chronic pain managed with daily oxycodone and IUGR with weekly NSTs and close monitoring of growth via sono. Additionally at 38-3/7 patient noted to have 2+ proteinuria in the presence of normal BPs. In consultation with MDs pt advised to move towards delivery. Admitted 07/20/18 and received 1 Cervidil that was removed for tachysystole and then slept overnight with therapeutic rest. O: BP 135/83 (since admission running 109-140/83-91) HR 77 T 98.3 FHT: 135bpm. Moderate variability. +Accels. No decels UCs Mild, irregular > 10 min apart VE: closed/long/vtx ballotable Labs this AM: 2+ proteinuria, Platelets: 220, H/H: 9.5/29, Uric acid: 6.1, AST: 12, ALT: 5, BUN: 5, Creat 0.65 A: IUP at 39 weeks with IUGR and proteinuria but stable labs here for IOL No evidence of metabolic acidemia P: In presence of unfavorable cervix reviewed options for further ripening. Discussed repeat Cervidil vs. trail oral or vaginal misoprostol. PARQ all. Pt and consent to trial oral misoprostol. Continue to closely monitor maternal / status. Dr. Garrett aware of pt presence and condition and agrees with plan.
[2018-07-21] MEDS ORDERED: Penicillin G Potassium IV* 5,000,000 UNITS in NS 0.9% 100 ML* 100 ML IVPB ONE (12:29)
--- NOTE | 2018-07-21 14:01 | PN ---
Progress Note - Progress Note Date of Service: 07/21/18 Note: S: Pt comfortable. Ready to continue induction. Given that UCs q 3-7 minutes and mild recommend repeat dose of oral misoprostol. Pt and agree. O: BP 132/89 HR 73 RR 18 T 97.9 FHT 135bpm. Moderate variability. +Accels. No decels. UCs q 3-7 min, mild VE: deferred A: IUP at 39 weeks with IUGR and proteinuria No evidence of metabolic acidemia P: Plan repeat dose of oral misoprostol at 14:30.
[2018-07-21] MEDS ORDERED: Misoprostol TAB* 100 MCG ONE (14:33)
--- NOTE | 2018-07-21 18:35 | PN ---
Progress Note - Progress Note Date of Service: 07/21/18 Note: S: Pt resting comfortably in bed. Notes some mild cramping when up and walking but nothing painful. In good spirits O: BP 118/68 HR 86 T 98.6 FHT: 145bpm. Moderate variability. +Accels. No decels UCs q 2-7 min, mild VE: 1cm/thick/vtx -3 A: IUP at 39 weeks with IUGR and proteinuria No evidence of metabolic acidemia P: Discussed options including one more dose of misoprostol. Pt agrees to final dose then if no active labor would like to rest overnight. Plan to repeat dose at 1845
[2018-07-21] MEDS: Promethazine INJ(RESTRICTED)* 25 MG/ML 1 ML VIAL IV PRN (22:13)
[2018-07-21] MEDS ORDERED: Nalbuphine* 10 MG/ML 1 ML VIAL IV PRN (22:30)
[2018-07-22] MEDS: oxyCODONE ORAL.SOLN* 5 MG/5 ML UDC PO PRN ×2 (08:26→20:37)
[2018-07-22] MEDS ORDERED: Oxytocin in LR* 20 UNITS/1,000 ML BAG IVPB ONE (09:27)
--- NOTE | 2018-07-22 09:42 | PN ---
Progress Note - Progress Note Date of Service: 07/22/18 Note: S: Slept well overnight after therapeutic rest. Reports mild cramping contractions irregularly. O: BP 135/86 HR 75 T 98.3 FHT: 145, no decels, +accels, mod variability UCs irregular, mild cramping VE 1cm/soft/60%/-3 A: IUP @ 39+1 weeks gestation with IUGR and pre-eclampsia No evidence metabolic acidemia P: Discussed trial of low-dose pitocin and/or blue bulb for continued cervical ripening and induction. All questions answered and patients in agreement. Two attempts at placing blue bulb unsuccessful so plan to proceed with initiating low-dose pitocin and can reconsider blue. Will recheck labs. Monitor per protocol.
[2018-07-22 09:51] LABS: ABS Basophils 0.1 10^3/ul (0-0.2); ABS Eosinophils 0 10^3/ul (0-0.6); ABS Monocytes 0.6 10^3/ul (0-0.8); ABS Neutrophils 5.5 10^3/ul (1.5-7.7); ABS Nucleated RBC 0 10^3/ul; Eosinophil % 0.4 % (0-6); Hematocrit 29 % (35-47); Hemoglobin 9.6 g/dl (12.0-16.0); Lymphocyte % 24.1 % (25-47); Mean Corpuscular HGB Conc 33 g/dl (31-36); Mean Corpuscular Hemoglobin 29 pg (27-31); Mean Corpuscular Volume 86 fL (80-97); Mean Platelet Volume 8.2 um3 (7.4-10.4); Nucleated Red Blood Cells % 0; Platelet Count 242 10^3/ul (150-450); Red Blood Count 3.34 10^6/ul (4.00-5.40); Red Cell Distribution Width 14 % (10.5-15); White Blood Count 8.2 10^3/ul (3.5-10.8)
[2018-07-22 10:09] LABS: EGFR Non-African American 115.1 (>60)
--- NOTE | 2018-07-22 16:44 | PN ---
Progress Note - Progress Note Date of Service: 07/22/18 - Note time 0855 Note: S: Contractions mild but a little stronger and more regular O: Pit @ 14 VE 1.5/70%/-2 UCs Q 2-4 min FHT 140, mod barb, no decels, +accels BP 144/88 T 98.6 Repeat CBC, CMP, uric acid stable A: IUP @ 39+1 weeks gestation with IUGR, preeclapmsia No evidence metabolic acidemia P: Per discussion, retry blue bulb placement which was unsuccessful after manual and speculum attempts. Patient tolerated well, opts to wait for a few hours before considering trying again. Continue pitocin and monitoring.
--- NOTE | 2018-07-22 18:52 | PN ---
Progress Note - Progress Note Date of Service: 07/22/18 Note: S: Feeling contractions and crampiness, still fairly mild O: Pit @ 14 UCs Q2-3 min FHT 140, +accels, no decels, mod barb BP @ 1735 165/90 repeat @ 1749 147/84 VE deferred for now A: IUP @ 39+1 for IOL for IUGR, PEC No evidence metabolic acidemia P: Discussed pitocin break, patient would like to walk around a little. Will plan to continue cervical ripening either with misoprostal or another attempt at blue balloon.
[2018-07-22] MEDS ORDERED: Promethazine INJ(RESTRICTED)* 25 MG/ML 1 ML VIAL IV PRN (20:37)
[2018-07-22] MEDS ORDERED: Nalbuphine* 10 MG/ML 1 ML VIAL IV PRN (20:37)
[2018-07-22] MEDS ORDERED: Misoprostol TAB* 100 MCG VAGINAL ONE (20:37)
[2018-07-22] MEDS ORDERED: Misoprostol TAB* 100 MCG ONE (20:37)
[2018-07-22] MEDS: Promethazine INJ(RESTRICTED)* 25 MG/ML 1 ML VIAL IV PRN (22:17)
--- NOTE | 2018-07-22 23:02 | PN ---
Progress Note - Progress Note Date of Service: 07/22/18 Note: S: Patient sleeping after nubain/phenergan @ 2220, misoprostal PV placed 2029 O: FHT 140, no decels, +accels, min barb UCs irregular A: IUP @ 39+1 weeks gestation for IOL for IUGR, PEC P: Give second dose misoprostal SL @ 07/23 0030, monitor per protocol. Reassess in am or PRN to restart pit, consider blue balloon or continued cervical ripening with miso.
--- NOTE | 2018-07-23 08:20 | PN ---
Progress Note - Progress Note Date of Service: 07/23/18 Note: S: Assuming care of Salina Teran a 33 yo who has been here since Monday for IOL for IUGR and pre-eclampsia. She has had Cervidil x 1 followed by oral misoprostol, trial of IV Pitocin and repeat of oral misoprostol with little cervical change. Pt understandably frustrated by lack of change. Requests break from EFM so that she can shower and then willing to discuss further options for IOL O: BP 114/70 HR 69 RR 18 T 98.5 FHT: 150bpm. Moderate variability. +Accels. No decels UCs q 2-4 min, mild VE: 1+/50%/vtx -3 A: IUP at 39-2/7 here for IOL due to IUGR and pre-eclampsia No evidence of metabolic acidemia P: Pt to rest from EFM and shower. Plan repeat labs and attempt at José balloon placement with IV Pitocin. Pt and agree with plan
[2018-07-23] MEDS: oxyCODONE ORAL.SOLN* 5 MG/5 ML UDC PO PRN (08:30)
[2018-07-23] MEDS ORDERED: Oxytocin in LR* 20 UNITS/1,000 ML BAG IVPB ONE (10:00)
[2018-07-23] MEDS ORDERED: Oxytocin in LR* 20 UNITS/1,000 ML BAG IVPB SCH (10:00)
--- NOTE | 2018-07-23 10:03 | PN ---
Progress Note - Progress Note Date of Service: 07/23/18 Note: S: Pt feeling better s/p bath O: BP 155/92 (immediately after procedure) FHT: 135bpm. Moderate variability. +Accels. No decels UCs q 2-4, mild VE: 1+/50%/vtx -3. José balloon catheter placed without difficulty. Pt tolerated well. 50mL sterile saline into balloon. Taped to inner thigh with traction A: IUP at 39-2/7 with IUGR and pre-eclampsia No evidence of metabolic acidemia P: José balloon catheter placed as above. Will await for it to fall out vs. remove in 12 hours. Plan low dose pitocin in conjunction with José catheter. Pt and agree. Close monitoring of maternal/ status
[2018-07-23 10:44] LABS: ABS Basophils 0 10^3/ul (0-0.2); ABS Eosinophils 0 10^3/ul (0-0.6); ABS Lymphocytes 1.7 10^3/ul (1.0-4.8); ABS Monocytes 0.5 10^3/ul (0-0.8); ABS Neutrophils 6.1 10^3/ul (1.5-7.7); ABS Nucleated RBC 0 10^3/ul; Eosinophil % 0.3 % (0-6); Hematocrit 29 % (35-47); Hemoglobin 9.4 g/dl (12.0-16.0); Lymphocyte % 20.5 % (25-47); Mean Corpuscular HGB Conc 33 g/dl (31-36); Mean Corpuscular Hemoglobin 28 pg (27-31); Mean Corpuscular Volume 86 fL (80-97); Mean Platelet Volume 8.3 um3 (7.4-10.4); Nucleated Red Blood Cells % 0.1; Platelet Count 219 10^3/ul (150-450); Red Blood Count 3.32 10^6/ul (4.00-5.40); Red Cell Distribution Width 14 % (10.5-15); White Blood Count 8.4 10^3/ul (3.5-10.8)
[2018-07-23 10:59] LABS: EGFR Non-African American 96.4 (>60)
[2018-07-23 11:27] LABS: Platelet Count 219 10^3/ul (150-450)
[2018-07-23 11:28] LABS: INR 0.82 (0.77-1.02)
[2018-07-23] MEDS ORDERED: Penicillin G Potassium IV* 5,000,000 UNITS in NS 0.9% 100 ML* 100 ML IVPB ONE (11:30)
[2018-07-23 11:53] LABS: Schistocytes ABSENT
--- NOTE | 2018-07-23 15:25 | PN ---
Progress Note - Progress Note Date of Service: 07/23/18 Note: S: S/P spontaneous rupture of membranes to clear fluid at 1040. José balloon removed after rupture confirmed by ROM +. IV pitocin continues. Pt much more crampy and generally uncomfortable but coping. Declines need for pain relief at this time. Resting in bed. at bedside and supportive O: BP 132/75 HR 71 T 98.4 FHT 140bpm. Moderate variability. +Accels. No decels. UCs q 2 min IV pitocin at 18mu/min VE: 1+/70%/vtx -2 scant clear fluid noted A: IUP at 39-2/7 here for IOL for IUGR and pre-eclampsia in latent labor Spontaneous rupture of membranes, GBS + abx prophylaxis started No evidence of metabolic acidemia P: Continue IV pitocin. Reassurances given. Pt and are trying to remain optimistic. Close monitoring of maternal/ status
[2018-07-23] MEDS: Penicillin G Potassium IV* 2,500,000 UNITS in NS 0.9% 100 ML* 100 ML IVPB SCH ×2 (15:41→19:38)
--- NOTE | 2018-07-23 16:34 | PN ---
Progress Note - Progress Note Date of Service: 07/23/18 Note: S: Pt is teary, exhausted and frustrated by lack of cervical change despite 4 days of induction. At this time she and would like to discuss pLTCS for failed induction. She feels strongly that she has given this her best try and nothing is changing. Feeling defeated and very ready to meet her baby. Last ate at 1300. O: BP 154/88 HR 85 T 99.5 FHT: 150bpm. Moderate variability. +Accels. No decels UCs q 2-3. IV pitocin off VE: deferred A: IUP at 39-2/7 here for IOL for IUGR and pre-eclampsia No evidence of metabolic acidemia GBS +, abx prophylaxis going P: Lengthy review of pLTCS, risks/benefits. All ?s answered. Pt and firm in their decision to proceed with pLTCS. Dr. Healy consulted and will come to assess patient, but in agreement with plan to proceed with c/s. Anesthesia notified and comfortable with proceeding to OR once pt has 6 hours fasting. IV pitocin off at this time to rest uterus. Will continue GBS prophylaxis as scheduled and close monitoring of maternal/ status.
[2018-07-23] MEDS ORDERED: ceFAZolin 1 GM in Dextrose (*) 1 GM/50 ML BAG IVPB ONE (20:27)
[2018-07-23] MEDS ORDERED: fentaNYL* 50 MCG/ML 2 ML VIAL (100 MCG VIAL) ONE (21:24)
[2018-07-23] MEDS ORDERED: Midazolam* 1 MG/ML 5 ML VIAL (5 MG) ONE (21:24)
[2018-07-23] MEDS ORDERED: KETAMINE HCL* 50 MG/ML 10 ML VIAL ONE (21:24)
[2018-07-23] MEDS ORDERED: Morphine PF AMP (0.5MG/ML)* 5 MG/10 ML AMP ONE (21:24)
[2018-07-23] MEDS ORDERED: EPHEDrine (Pressors)* 50 MG/ML VIAL ONE (21:49)
[2018-07-23] MEDS ORDERED: Dexamethasone IV* 4 MG/ML 1 ML (4 MG) ONE (21:49)
[2018-07-23] MEDS ORDERED: Glycopyrrolate IV* 0.2 MG/ML 1 ML VIAL ONE (21:49)
[2018-07-23] MEDS ORDERED: Ondansetron INJ* 2 MG/ML VIAL ONE (21:49)
[2018-07-23] MEDS ORDERED: Scopolamine 1.5 mg* PATCH ONE (21:53)
[2018-07-23] MEDS ORDERED: Ondansetron INJ* 2 MG/ML VIAL IV PRN (22:05)
[2018-07-23] MEDS ORDERED: Naloxone* 2 MG in NS 0.9% 250 ML* 250 ML IV PRN (22:05)
[2018-07-23] MEDS ORDERED: DiMENhydriNATE IV* 50 MG/ML VIAL IV PUSH PRN (22:05)
[2018-07-23] MEDS ORDERED: PROCHLORPERAZINE INJ 5 MG/ML 2 ML VIAL IV PRN (22:05)
[2018-07-23] MEDS ORDERED: Nalbuphine* 10 MG/ML 1 ML VIAL IV PRN (22:05)
[2018-07-23] MEDS ORDERED: diPHENhydraMINE IV* 50 MG/ML 1 ml VIAL (BENADRYL) IV PRN (22:05)
[2018-07-23] MEDS ORDERED: Naloxone* 0.4 MG/ML 1 ML VIAL IV PRN ×2 (22:05→22:09)
[2018-07-23] MEDS ORDERED: fentaNYL* 50 MCG/ML 2 ML VIAL (100 MCG VIAL) IV PRN (22:09)
[2018-07-23] MEDS ORDERED: OXYTOCIN* 10 UNITS/ML 1 ML VIAL ONE (22:45)
[2018-07-23] MEDS ORDERED: Ibuprofen TAB* 600 MG PO PRN (22:53)
[2018-07-23] MEDS ORDERED: Acetaminophen TAB* 325 MG PO PRN (22:53)
[2018-07-23] MEDS: oxyCODONE/Acetamin 5/325 MG* TAB PO PRN (23:52)
[2018-07-24 06:50] LABS: ABS Basophils 0 10^3/ul (0-0.2); ABS Eosinophils 0 10^3/ul (0-0.6); ABS Lymphocytes 1.2 10^3/ul (1.0-4.8); ABS Monocytes 0.4 10^3/ul (0-0.8); ABS Neutrophils 16.8 10^3/ul (1.5-7.7); ABS Nucleated RBC 0 10^3/ul; Eosinophil % 0 % (0-6); Hematocrit 25 % (35-47); Hemoglobin 8.1 g/dl (12.0-16.0); Lymphocyte % 6.4 % (25-47); Mean Corpuscular HGB Conc 33 g/dl (31-36); Mean Corpuscular Hemoglobin 28 pg (27-31); Mean Corpuscular Volume 86 fL (80-97); Mean Platelet Volume 8.2 um3 (7.4-10.4); Nucleated Red Blood Cells % 0; Platelet Count 215 10^3/ul (150-450); Red Blood Count 2.92 10^6/ul (4.00-5.40); Red Cell Distribution Width 14 % (10.5-15); White Blood Count 18.4 10^3/ul (3.5-10.8)
[2018-07-24] MEDS: oxyCODONE/Acetamin 5/325 MG* TAB PO PRN ×3 (07:58→21:08)
[2018-07-24] MEDS: Ferrous Gluconate TAB* 324 MG TAB PO SCH ×3 (09:26→19:26)
[2018-07-24] MEDS: Docusate CAP* 100 MG PO SCH ×3 (09:26→21:08)
[2018-07-24] MEDS: Simethicone TAB* 80 MG TAB.CHEW PO SCH ×4 (09:26→21:16)
[2018-07-24] MEDS ORDERED: oxyCODONE/Acetamin 5/325 MG* TAB PO PRN (13:41)
--- NOTE | 2018-07-24 20:22 | OP ---
DATE OF OPERATION: 07/23/18 - ROOM #118 DATE OF : 85 SURGEON: Kortney Healy MD EPIC DIRECTOR: Ayana Barrett CNM PRE-OP DIAGNOSES: Intrauterine gestation at 39 weeks' gestational age, intrauterine growth restriction, failed induction of labor. POST-OP DIAGNOSES: Intrauterine gestation at 39 weeks' gestational age, intrauterine growth restriction, failed induction of labor. OPERATIVE PROCEDURE: Primary lower transverse section. INDICATIONS: The patient is a G1 @39wk GA who presented for induction of labor due to IUGR with 2+ proteinuria. She underwent 4 days of attempted induction of labor with Cervidil, misoprostol, Pitocin, and José balloon. She underwent spontaneous rupture of membranes approximately 10 hours before the . Despite being on Pitocin she did not progress in cervical dilation. Therefore, discussion was had with the patient and her partner and they opted to proceed with primary section. ESTIMATED BLOOD LOSS: 600 mL. FLUIDS: Crystalloid. FINDINGS: Female , weight 6 pounds 5 ounces, Apgars 8 and 9. Normal- appearing uterus, ovaries, and tubes. Placenta with velamentous cord insertion. COUNTS: All correct. DRAINS: José catheter with clear urine. DESCRIPTION OF PROCEDURE: After informed consent was signed, the patient was taken to the operating room where she was given a spinal anesthesia that was found to be adequate. SCDs were placed on her legs and a José catheter was introduced into her bladder. She was prepped and draped in the dorsal supine position with leftward tilt. A time-out was performed. A Pfannenstiel skin incision was made with a scalpel and carried down to the underlying layer of fascia. The fascia was incised on either side of the midline with the scalpel and the fascial incision extended laterally with a combination of sharp and blunt dissection. Then, the superior edge of the fascial incision was grasped with Lorenzo clamps, tented up, and dissected down with sharp and blunt dissection. The inferior edge of the fascial incision was also grasped with Lorenzo clamps, tented up, and dissected down with a combination of sharp and blunt dissection. The rectus muscles were in the midline and the peritoneum was entered bluntly. The peritoneal incision was extended laterally with a combination of blunt and sharp dissection. The bladder blade was inserted and a transverse incision was made in the lower uterine segment with the scalpel. The incision was extended superiorly and inferiorly with blunt pressure. There was some difficulty had with delivering the 's head and therefore the Kiwi vacuum suction was applied to the head to assist with delivery. With fundal pressure, the head then delivered followed by the shoulders and the rest of the body. The cord was milked towards the baby, then clamped x2 and cut. The baby was handed to the timber framer. The cord blood was collected. The placenta then delivered with fundal massage and gentle cord traction. The uterus was exteriorized and the uterine cavity was cleared of clots and debris. The uterine incision was closed with 0 Vicryl in a running locked fashion with the second layer of suture imbricating the first. The abdomen was irrigated and uterus was placed back into the abdominal cavity. The incision was inspected and good hemostasis was noted along the length of the incision. The peritoneum was closed with 3-0 Vicryl in a running unlocked fashion. The rectus muscles were inspected and good hemostasis was seen in that layer. The fascia was then closed with 0 Vicryl in a running unlocked fashion. One 3-0 Vicryl suture was placed in the midline and the incision to help reapproximate the skin edges. The skin was then closed with 4-0 Monocryl in a running subcuticular fashion. Mastisol and Steri-Strips were placed on the incision. The patient was cleaned, moved to the stretcher, and taken to the recovery room in stable condition. [id number] #: [id number] SRIDHAR
[2018-07-25] MEDS: oxyCODONE/Acetamin 5/325 MG* TAB PO PRN ×6 (03:05→23:38)
[2018-07-25] MEDS: Simethicone TAB* 80 MG TAB.CHEW PO SCH ×4 (08:40→19:46)
[2018-07-25] MEDS: Docusate CAP* 100 MG PO SCH ×3 (08:40→19:46)
[2018-07-25] MEDS: Ferrous Gluconate TAB* 324 MG TAB PO SCH (09:15)
[2018-07-25] MEDS ORDERED: Hydrocortisone 1% CREAM* 30 GM TUBE TOPICAL SCH (10:00)
[2018-07-26] MEDS: oxyCODONE/Acetamin 5/325 MG* TAB PO PRN ×3 (03:35→11:57)
[2018-07-26 07:40] VITALS: BP 140/88
[2018-07-26] MEDS: Simethicone TAB* 80 MG TAB.CHEW PO SCH ×2 (09:14→13:03)
[2018-07-26] MEDS: Docusate CAP* 100 MG PO SCH (09:14)
[2018-07-26] MEDS ORDERED: Scopolamine PATCH Remove* 1 NOTE MISC PATCH OFF PRN (22:06)
== END 2018-07-26 13:54 | disposition home or self-care (01) | DRG 765 ==
LOC: MCHOBOUT 08:09 → MCHOB 09:32
PROVIDERS: ADMIT Midwife; ATTEND Obstetrics & Gynecology
PROC: 3E033VJ Introduction of Other Hormone into Peripheral Vein, Percutaneous Approach (ICD-10-PCS; principal; 2018-07-20)
PROC: 4A1HXCZ Monitoring of Products of Conception, Cardiac Rate, External Approach (ICD-10-PCS; 2018-07-20)
PROC: 3E0P7VZ Introduction of Hormone into Female Reproductive, Via Natural or Artificial Opening (ICD-10-PCS; 2018-07-20)
PROC: 10D00Z1 Extraction of Products of Conception, Low, Open Approach (ICD-10-PCS; 2018-07-23)
PROC: 0U7C7ZZ Dilation of Cervix, Via Natural or Artificial Opening (ICD-10-PCS; 2018-07-23)
DX: O36.5930 Maternal care for other known or suspected poor fetal growth, third trimester, not applicable or unspecified (principal); K50.90 Crohn's disease, unspecified, without complications; O99.824 Streptococcus B carrier state complicating childbirth; O99.62 Diseases of the digestive system complicating childbirth; O62.4 Hypertonic, incoordinate, and prolonged uterine contractions; O90.81 Anemia of the puerperium; O75.81 Maternal exhaustion complicating labor and delivery; O14.94 Unspecified pre-eclampsia, complicating childbirth; G89.29 Other chronic pain; O61.9 Failed induction of labor, unspecified; O43.123 Velamentous insertion of umbilical cord, third trimester; Z88.1 Allergy status to other antibiotic agents; Z88.8 Allergy status to other drugs, medicaments and biological substances; Z90.49 Acquired absence of other specified parts of digestive tract; Z37.0 Single live birth; Z80.8 Family history of malignant neoplasm of other organs or systems; Z84.0 Family history of diseases of the skin and subcutaneous tissue; Z3A.39 39 weeks gestation of pregnancy; Z86.718 Personal history of other venous thrombosis and embolism
CPT/HCPCS: 36415; 80053; 80307; 81003; 81015; 84112; 84550; 85025; 85049; 85362; 85384; 85610; 85730; 86850; 86900; 86901; 87086; 88307; A9270-GY; J0690; J1100; J2250; J2300; J2405; J2540; J2550; J2590; J3010; S0191